=== PATIENT | female | born 2000 | race Caucasian/White ===

== ENCOUNTER 2022-07-25 13:01 | Outpatient (CLI) | payer OTHER, SELFPAY ==
[2022-07-25 15:23] LABS: TSH With Reflex to FT4* 0.788 uIU/mL (0.270-4.200)
[2022-07-25 16:11] LABS: Chlamydia DNA Amplified* NOT DETECTED (No Detected); GC DNA Amplified* NOT DETECTED (No Detected)
== END 2022-07-25 13:02 | disposition home or self-care (01) ==
PROVIDERS: Visit Provider Registered Nurse
DX: N92.6 Irregular menstruation, unspecified (principal)
CPT/HCPCS: 84443; 87491; 87591